=== PATIENT | female | born 1990 | race Caucasian/White ===

== ENCOUNTER → 2018-06-07 | Emergency (ER) | payer MEDICAID, OTHER ==
[2018-06-07 22:08] LABS: ADD UMIC NO; UR ASCORBIC ACID NEGATIVE (NEGATIVE); UR BILIRUBIN (Dip) NEGATIVE (NEGATIVE); UR BLOOD (Dip) NEGATIVE (NEGATIVE); UR CLARITY SLIGHTLY CLOUDY (CLEAR); UR COLOR YELLOW (YELLOW); UR GLUCOSE (Dip) NEGATIVE (NEGATIVE); UR KETONES (Dip) NEGATIVE (NEGATIVE); UR LEUKOCYTE ESTERASE (Dip) NEGATIVE Leu/ul (NEGATIVE); UR NITRITE (Dip) NEGATIVE (NEGATIVE); UR RBC 1 /HPF (0-5); UR SPECIFIC GRAVITY (Dip) 1.019 (1.003-1.030); UR SQUAMOUS EPITHELIAL CELL FEW /HPF (FEW); UR TOTAL PROTEIN (Dip) NEGATIVE (NEGATIVE); UR UROBILINOGEN (Dip) 1+ mg/dL (NEGATIVE); UR WBC 0 /HPF (0-5)
[2018-06-07] MEDS: KETOROLAC 60 MG INJ IM (22:11)
[2018-06-07] MEDS: ACETAMINOPHEN 500 MG TAB PO (22:11)
[2018-06-07] MEDS: LIDOCAINE 1% (MDV) 20 ML INJ SC (22:12)
[2018-06-08] MEDS: AMOXICILLIN/CLAV 875 MG TAB PO (01:16)
[2018-06-08] MEDS: metroNIDAZOLE 500 MG TAB PO (01:16)
[2018-06-08] MEDS: ONDANSETRON (ODT) 4 MG TAB ODT (01:16)
== END | disposition home or self-care (01) ==
LOC: FTE 18:46
DX: N76.0 Acute vaginitis (principal); N75.8 Other diseases of Bartholin's gland
CPT/HCPCS: 56420; 81001; 81003; 81025; 96372; 99284-25